=== PATIENT | female | born 1965 | race Caucasian/White ===

== ENCOUNTER → 2020-12-13 14:01 | Outpatient (CLI) | payer OTHER, SELFPAY ==
--- NOTE | ~2020-12-13 | MM_ITS ---
EXAMINATION: MM diagnostic mariana BI w aleksandra HISTORY: Follow-up for probably benign left breast calcifications TECHNIQUE: Craniocaudal, mediolateral, and mediolateral oblique 3-D tomosynthesis images of the janis ts were performed and synthetic 2-D images were generated. Magnification views are also obtained. CAD analysis was submitted and interpreted. COMPARISON: 11/10/2019, 07/16/2019,03/22/2019, 03/27/2019, 02/25/2018 BREAST PARENCHYMAL COMPOSITION: The breasts are heterogeneously dense, which may obscure small masses . FINDINGS: There are grouped calcifications in the posterior third of the upper outer quadrant of the left breast at the 2:00 location 10 cm from the nipple. These appear to be predominantly punctate and round in morphology. There has been no suspicious interval change. No suspicious mass or architectur al distortion is identified in either breast. IMPRESSION: 1. Probably benign left breast calcifications. 2. Recommend 6 month follow-up left diagnostic mammogram. BI-RADS category 3, probably benign findings. Reviewed, dictated and finalized at location A.
== END ==
PROVIDERS: PCP Family Medicine; Visit Provider Family Medicine
DX: R92.8 Other abnormal and inconclusive findings on diagnostic imaging of breast (principal)
CPT/HCPCS: 77062; 77066; G0279

== ENCOUNTER 2021-05-29 01:20 | Day surgery (SDC) | payer OTHER, SELFPAY ==
[2021-05-25 09:54] VITALS: BMI 27.4
--- NOTE | 2021-05-28 11:57 | PM.HPGS ---
History of Present Illness History of Present Illness Consent: Risks, benefits, and alternatives have been discussed and questions answered. Patient agrees to proceed with procedure. Chief complaint: GERD Narrative: Cammie Lees is a 55 year old female With 6 weeks of epigastric fullness that comes and goes but is present at least every day. She has had no weight loss. A recent ENT investigation for ringing in the ears revealed that she has reflux esophagitis. For that she was placed on omeprazole which did not help. a few days ago she began taking pantoprazole Review of Systems Review of Systems: All systems reviewed & are unremarkable except as noted in HPI and below PMFSH Past Medical History Medical History GERD (gastroesophageal reflux disease) Surgical History Surgical History History of cholecystectomy Family History Family History Mother Hypertension Father Patient's father is Acute myocardial infarction Alcoholism Hypertension Heart disease Sibling Hypertension Depression Other Family history of cardiovascular disease Family history of malignant neoplasm Social History Social History Smoking status: Never smoker Second hand tobacco smoke exposure: No Alcohol intake: current Substance use: never Substance use type: does not use Meds Home Medications and Allergies Home Medications Medication Instructions Recorded Confirmed Type pantoprazole 40 mg PO DAILY 05/25/21 05/29/21 History Allergies Allergy/AdvReac Type Severity Reaction Status Date / Time No Known Allergies Allergy Unknown Verified 05/29/21 10:20 Exam Const: General: alert Orientation/consciousness: patient oriented x3 Resp: Auscultation: clear to auscultation bilaterally Cardio: Rhythm: regular rhythm GI: GI Palp: Yes Soft to palpation and No Tenderness to palpation present (GI) Neuro: General: patient oriented x3 Assessment and Plan Assessment and plan (1) GERD (gastroesophageal reflux disease): Qualifiers: Esophagitis presence: esophagitis presence not specified Qualified Code(s): K21.9 - Gastro-esophageal reflux disease without esophagitis Code(s): K21.9 - Gastro-esophageal reflux disease without esophagitis Status: Acute Assessment and Plan: EGD with possible biopsy or dilatation or cautery.
[2021-05-29 10:21] VITALS: BP 145/94; PULSE 69; RESP 16; TEMP 36.6; O2SAT 99
[2021-05-29] MEDS: LACTATED RINGERS 1,000 ML 150 ML IV CONT (10:23)
--- NOTE | 2021-05-29 10:32 | WPDANESEPPF ---
Anes - Initial Pre Proc Eval Procedure: Operation Date: 05/29/21 13:45 Proposed Procedures p Esophagogastroduodenoscopy - Miko Cotter MD Date/Time: 05/29/21 10:32 Surgeon: Miko Cotter MD Pre Op Diagnosis: GERD Patient Data Age: 55 Gender: F Height: 1.73 m Weight: 84.2 kg Last Vital Signs Temp 36.6 C 05/29/21 10:21 Pulse 69 05/29/21 10:21 Resp 16 05/29/21 10:21 BP 145/94 H 05/29/21 10:21 Pulse Ox 99 05/29/21 10:21 Allergies Allergy/AdvReac Type Severity Reaction Status Date / Time No Known Allergies Allergy Unknown Verified 05/29/21 10:20 Home Medications Medication Instructions Recorded Confirmed Type pantoprazole 40 mg PO DAILY 05/25/21 05/29/21 History Patient hx anesthesia problems: none Family hx anesthesia problems: none Results Review: All pre-operative results and documents have been reviewed as part of the pre-operative evaluation. FORMERLY [facility] Past Medical History Medical History (Updated 05/26/21 @ 18:49 by Frankie Lee DO) GERD (gastroesophageal reflux disease) Surgical History Surgical History (Updated 05/26/21 @ 18:49 by Frankie Lee DO) History of cholecystectomy Family History Family History Mother Hypertension Father Patient's father is Acute myocardial infarction Alcoholism Hypertension Heart disease Sibling Hypertension Depression Other Family history of cardiovascular disease Family history of malignant neoplasm Social History Social History Smoking status: Never smoker Second hand tobacco smoke exposure: No Alcohol intake: current Substance use: never Substance use type: does not use Anes - Eval Final PreProcedure Day of Procedure 05/29/21 10:32 Patient weight: overweight Heart: regular rate and rhythm Lungs: clear to auscultation and normal air movement Airway: Mallampati scale class II Neurological: alert and oriented Last oral intake: >/= 8 hours ASA classification: II Emergent: no Anesthetic plan: proceed Anesthesia type and monitoring: general GIVS and standard monitoring Results Review: All pre-operative results and documents have been reviewed as part of the pre-operative evaluation. Informed Consent: The patient's anesthetic plan and its attendant risks and benefits were discussed with the patient/family/POA. Questions were solicited and answers provided to the satisfaction of the patient/family/POA.
[2021-05-29] MEDS: SIMETHICONE ORAL SUSPENSION 20 MG/0.3 ML 30 ML BOTTLE 0.6 ML IRRIGATION (11:27)
[2021-05-29 11:34] VITALS: BP 141/95; PULSE 76; RESP 18; O2SAT 100
[2021-05-29 11:44] VITALS: BP 147/101; PULSE 66; RESP 14; O2SAT 100
[2021-05-29 11:54] VITALS: BP 147/100; PULSE 64; RESP 17; O2SAT 100
== END 2021-05-29 12:03 | disposition home or self-care (01) ==
PROVIDERS: PCP Nurse Practitioner Family; Visit Provider Internal Medicine Gastroenterology
PROC: 0DJ08ZZ Inspection of Upper Intestinal Tract, Via Natural or Artificial Opening Endoscopic (ICD-10-PCS; CPT 43235; principal; 2021-05-29 13:45)
DX: K21.9 Gastro-esophageal reflux disease without esophagitis (principal); K29.70 Gastritis, unspecified, without bleeding; Z90.49 Acquired absence of other specified parts of digestive tract
CPT/HCPCS: 43239; 87081; J2704; J7120

== ENCOUNTER → 2021-06-14 09:10 | Outpatient (CLI) | payer OTHER, SELFPAY ==
--- NOTE | ~2021-06-14 | MM_ITS ---
EXAMINATION: MM diagnostic mariana LT w aleksandra HISTORY: Six-month follow-up for probably benign left breast calcifications TECHNIQUE: Craniocaudal, mediolateral, and mediolateral oblique 3-D tomosynthesis images of the left breast were performed and synthetic 2-D images were generated. CAD analysis was submitted and interpr eted. COMPARISON: 12/13/2020, 11/10/2019,07/16/2019, 04/08/2019, 03/27/2019 BREAST PARENCHYMAL COMPOSITION: The breasts are heterogeneously dense, which may obscure small masses . FINDINGS: There are stable grouped calcifications in the posterior third of the upper outer quadrant of the left breast at the 2:00 location 10 cm from the nipple which are punctate and round in morphol ogy. No suspicious interval change is identified. There is no suspicious mass or architectural distor tion of the breast. IMPRESSION: 1. Left breast calcifications with greater than two years of stability, consistent with benign findin gs. 2. Routine screening mammography is recommended, due in December. BI-RADS Category 2: Benign finding(s). Reviewed, dictated and finalized at location A. R STEWARD/STEWARDESS IMPRESSION: 1. Left breast calcifications with greater than two years of stability, consist ent with benign findings. 2. Routine screening mammography is recommended, due in December. BI-RADS Category 2: Benign finding(s).
== END ==
PROVIDERS: PCP Family Medicine; Visit Provider Family Medicine
DX: R92.8 Other abnormal and inconclusive findings on diagnostic imaging of breast (principal)
CPT/HCPCS: 77061; 77065; G0279

== ENCOUNTER → 2021-12-15 12:52 | Outpatient (CLI) | payer OTHER, SELFPAY ==
--- NOTE | ~2021-12-15 | MM_ITS ---
EXAMINATION: MM screening mariana BI w aleksandra HISTORY: Screening TECHNIQUE: Craniocaudal and mediolateral oblique 3-D tomosynthesis images were obtained and synthetic 2-D images were generated. CAD analysis was submitted and interpreted. COMPARISON: Comparison to multiple prior studies sequentially, with oldest reviewed study dated 03/10. BREAST PARENCHYMAL COMPOSITION: The breasts are heterogeneously dense, which may obscure small masses . FINDINGS: Stable benign-appearing breast calcifications. There is no evidence of suspicious mass, dima cification, or architectural distortion to suggest malignancy in either breast. There has been no chano picious interval change. IMPRESSION: 1. No mammographic evidence of malignancy. 2. Recommend routine screening mammography in one year. BI-RADS Category 2: Benign finding(s). Reviewed, dictated and finalized at location A.
== END ==
PROVIDERS: PCP Hospitalist; Visit Provider Nurse Practitioner Family
DX: Z12.31 Encounter for screening mammogram for malignant neoplasm of breast (principal)
CPT/HCPCS: 77063; 77067

== ENCOUNTER → 2023-01-04 10:54 | Outpatient (CLI) | payer OTHER, SELFPAY ==
--- NOTE | ~2023-01-04 | MM_ITS ---
EXAMINATION: MM screening [facility] BI w aleksandra HISTORY: Screening mammogram TECHNIQUE: Craniocaudal and mediolateral oblique 3-D tomosynthesis images were obtained and synthetic 2-D images were generated. CAD analysis was submitted and interpreted. COMPARISON: 12/15/2021, 06/14/2021, 12/13/2020, 11/10/2019 BREAST PARENCHYMAL COMPOSITION: The breasts are heterogeneously dense, which may obscure small masses . FINDINGS: No suspicious mass, calcification, or architectural distortion are identified in either dean ast to suggest malignancy. There has been no suspicious interval change. IMPRESSION: 1. No mammographic evidence of malignancy. 2. Recommend routine screening mammography in one year. BI-RADS Category 1: Negative Reviewed, dictated and finalized at location A.
== END ==
PROVIDERS: PCP Family Medicine; Visit Provider Family Medicine
DX: Z12.31 Encounter for screening mammogram for malignant neoplasm of breast (principal)
CPT/HCPCS: 77063; 77067

== ENCOUNTER 2023-01-15 11:25 | Outpatient (CLI) | payer OTHER, SELFPAY ==
--- NOTE | ~2023-01-15 | XR_ITS ---
EXAMINATION: XR cervical spine 4-5V DATE: 01/15/2023 11:49 INDICATION: Neck pain. TECHNIQUE: 5 views of cervical spine were obtained. COMPARISON: None. FINDINGS: There is 6 degrees levocurvature of cervicothoracic spine. Vertebral body heights are bradley l. There is mildly decreased disc height at C4-C5, moderately decreased disc height at C5-C6, and sev erely decreased disc height at C6-C7. There is multilevel uncovertebral joint osteoarthritis, severe on the right at C4-C5 and bilaterally at C5-C6 and C6-C7. There is multilevel mild facet joint osteoa rthritis. There is mild central canal stenosis at C4-C5, C5-C6, and C6-C7. No prevertebral soft tissu e swelling. IMPRESSION: 1. Severe cervical spondylosis. Reviewed, dictated and finalized at location A.
--- NOTE | ~2023-01-15 | XR_ITS ---
AP views of the bilateral clavicles CLINICAL HISTORY: Cervicalgia FINDINGS: No fracture or dislocation seen. Osseous alignment is anatomic. Joint spaces are preserved. Soft tissues are unremarkable. IMPRESSION: Unremarkable exam. Reviewed, dictated and finalized at location M. IMPRESSION: Unremarkable exam.
== END 2023-01-15 11:26 | disposition home or self-care (01) ==
PROVIDERS: PCP Family Medicine; Visit Provider Physician Assistant
DX: M47.892 Other spondylosis, cervical region (principal)
CPT/HCPCS: 72050; 73000

== ENCOUNTER 2024-01-10 12:57 | Outpatient (CLI) | payer OTHER, SELFPAY ==
--- NOTE | ~2024-01-10 | US_ITS ---
Pelvic ultrasound. Clinical History: Pelvic pain Technique: Realtime transabdominal scanning of the pelvis was performed. Color flow Doppler and Doppl er spectral analysis were performed. Findings: The uterus is anteverted, and measures 6.5 x 1.6 x 4.3 cm. The endometrial stripe has a th ickness of 2 mm. No focal mass is identified. The right ovary is not visualized. No significant right ovarian or adnexal mass is seen. The left ovary measures 2.1 x 1.4 x 1.8 cm. Simple left ovarian cyst measures 1.3 cm. There is no evidence of free fluid in the cul de sac. Impression: No significant abnormality seen. Right ovary not seen. Reviewed, dictated and finalized at [facility]. Impression: No significant abnormality seen. Right ovary not seen.
--- NOTE | ~2024-01-10 | MM_ITS ---
EXAMINATION: MM screening [facility] BI w aleksandra HISTORY: Screening TECHNIQUE: Craniocaudal and mediolateral oblique 3-D tomosynthesis images were obtained and synthetic 2-D images were generated. CAD analysis was submitted and interpreted. COMPARISON: Comparison to multiple prior studies sequentially, with oldest reviewed study dated 11/2020. BREAST PARENCHYMAL COMPOSITION: Not dense: There are scattered areas of fibroglandular density. FINDINGS: There are focal nodular asymmetries in the upper outer quadrant of the right breast, latera lly. There is a cluster of indeterminate calcifications in the upper outer quadrant of the left breas t posteriorly. IMPRESSION: 1. Right breast asymmetries. Left breast clustered calcifications. 2. Additional mammographic views and possible breast ultrasound are recommended. BI-RADS Category 0: Incomplete: Needs additional imaging evaluation. Reviewed, dictated and finalized at location B. IMPRESSION: 1. Right breast asymmetries. Left breast clustered calcifications. 2. Additional mammographic views and possible breast ultrasound are recommended . BI-RADS Category 0: Incomplete: Needs additional imaging evaluation.
--- NOTE | ~2024-01-10 | XR_ITS ---
EXAMINATION: XR abdomen obstructive series DATE: 01/10/2024 13:41 INDICATION: Abdominal distention (gaseous). TECHNIQUE: A supine view of the abdomen on 2 radiographs was obtained. COMPARISON: Abdomen radiographs 07/03/2016 FINDINGS: There is dilated small bowel left abdomen. Is normal in caliber. Surgical clips in the right upper quadrant are likely from cholecystectomy. The re are phleboliths in the pelvis. IMPRESSION: 1. Dilated small bowel in left abdomen, consistent with adynamic ileus versus small bowel obstruction . Consider CT. Reviewed, dictated and finalized at location A. IMPRESSION: 1. Dilated small bowel in left abdomen, consistent with adynamic ileus versus s mall bowel obstruction. Consider CT.
== END 2024-01-10 12:58 ==
PROVIDERS: PCP Family Medicine; Visit Provider Family Medicine
DX: Z12.31 Encounter for screening mammogram for malignant neoplasm of breast (principal); R10.2 Pelvic and perineal pain; R14.0 Abdominal distension (gaseous)
CPT/HCPCS: 74019; 76856; 77063; 77067

== ENCOUNTER 2024-01-20 08:57 | Outpatient (CLI) | payer OTHER, SELFPAY ==
--- NOTE | ~2024-01-20 | CT_ITS ---
EXAMINATION: CT abdomen pelvis wo con DATE: 01/20/2024 09:10 INDICATION: Pelvic and perineal pain. Abdominal distention. TECHNIQUE: Computed tomography (CT) of the abdomen and pelvis was performed without intravenous contr ast. Automated exposure control and iterative reconstruction technique were employed. The dose-length product was 577.71 mGy-cm. COMPARISON: Abdomen radiograph 01/10/2024 FINDINGS: The visualized portions of the lung bases demonstrate a few nodules measuring up to 4 mm, l ikely benign. No pleural effusion. The heart size is normal. No pericardial effusion. There is a left posterior diaphragmatic hernia containing fat. The liver and spleen are normal. There are changes of cholecystectomy. The pancreas and adrenal glands are normal. There is a 1 mm stone in right kidney. There is a 1 mm stone in left kidney. There are no dilated loops of bowel. The appendix is normal. Th ere are no pathologically enlarged lymph nodes. There is no free intraperitoneal fluid. There is george re thoracic and lumbar spondylosis. IMPRESSION: 1. No etiology for the patient's symptoms. Reviewed, dictated and finalized at location A.
== END 2024-01-20 08:58 ==
LOC: MICIMG 08:58
PROVIDERS: PCP Family Medicine; Visit Provider Family Medicine
DX: K56.7 Ileus, unspecified (principal)
CPT/HCPCS: 74176

== ENCOUNTER 2024-02-07 08:58 | Outpatient (CLI) | payer OTHER, SELFPAY ==
--- NOTE | ~2024-02-07 | MMUS_ITS ---
EXAMINATION: MM diagnostic mariana BI w aleksandra, US breast BI complete HISTORY: Follow-up right breast asymmetry and left breast calcifications TECHNIQUE: Additional 3-D tomosynthesis images of the breasts were performed and synthetic 2-D images were generated. CAD analysis was submitted and interpreted. High resolution bilateral complete breas t ultrasound was performed. COMPARISON: Comparison to multiple prior studies sequentially, with oldest reviewed study dated 07/2019. BREAST PARENCHYMAL COMPOSITION: Dense: The breasts are heterogeneously dense, which may obscure small masses FINDINGS: MAMMOGRAPHIC FINDINGS: There are no discrete masses, architectural distortion or skin thickening in either breast. Stable pu nctate benign-appearing left breast calcifications without significant change compared with studies d ating back to 11/10/2019 ULTRASOUND: Complete US of all 4 quadrants of the breast/s and retroareolar region was reviewed. Right breast: Normal heterogeneous echotexture without focal solid or cystic mass. Left breast: At 2:00, 1 cm from the nipple there is a 3 mm cyst. No suspicious masses in the left dean ast to suggest malignancy. IMPRESSION: 1. No evidence for malignancy in either breast. Benign findings. 2. Routine yearly screening mammogram and regular clinical breast examination are recommended. BI-RADS Category 2: Benign finding(s). Reviewed, dictated and finalized at location B. IMPRESSION: 1. No evidence for malignancy in either breast. Benign findings. 2. Routine yearly screening mammogram and regular clinical breast examination a re recommended. BI-RADS Category 2: Benign finding(s).
== END 2024-02-07 08:59 | disposition home or self-care (01) ==
LOC: MICIMG 08:59
PROVIDERS: PCP Family Medicine; Visit Provider Student in an Organized Health Care Education/Training Program
DX: R92.8 Other abnormal and inconclusive findings on diagnostic imaging of breast (principal)
CPT/HCPCS: 76641; 77062; 77066; G0279